=== PATIENT | male | born 1975 | race Two or more races ===

== ENCOUNTER 2022-02-01 12:15 | Outpatient (REF) | payer MEDICAID, SELFPAY ==
--- NOTE | ~2022-02-01 | XR_ITS ---
EXAMINATION: LUMBAR SPINE AND RIGHT SHOULDER. CLINICAL INFORMATION: Low back pain COMPARISON: None TECHNIQUE: 3 views lumbar spine and 4 views right shoulder. FINDINGS: Lumbar spine: There is normal lumbar lordosis the vertebral heights and alignment is normal. There is no visible acute fracture, dislocation or subluxation seen there is no lytic or sclerotic process. Right shoulder: There is no visible acute fracture or dislocation seen the glenohumeral joint space and AC joint space is normal. There is no soft tissue abnormality seen XR/XR lumbar spine 2-3V IMPRESSION: Unremarkable lumbar spine exam. Unremarkable right shoulder exam
--- NOTE | ~2022-02-01 | XR_ITS ---
EXAMINATION: LUMBAR SPINE AND RIGHT SHOULDER. CLINICAL INFORMATION: Low back pain COMPARISON: None TECHNIQUE: 3 views lumbar spine and 4 views right shoulder. FINDINGS: Lumbar spine: There is normal lumbar lordosis the vertebral heights and alignment is normal. There is no visible acute fracture, dislocation or subluxation seen there is no lytic or sclerotic process. Right shoulder: There is no visible acute fracture or dislocation seen the glenohumeral joint space and AC joint space is normal. There is no soft tissue abnormality seen XR/XR shoulder RT min 2V IMPRESSION: Unremarkable lumbar spine exam. Unremarkable right shoulder exam
== END 2022-02-01 12:16 | disposition home or self-care (01) ==
LOC: HO.XRAY 12:15
PROVIDERS: Absent Provider Family Medicine; PCP Family Medicine; Visit Provider Internal Medicine
DX: M25.511 Pain in right shoulder (principal); M54.50 Low back pain, unspecified
CPT/HCPCS: 72100; 73030

== ENCOUNTER 2022-12-26 12:21 | Emergency (ER) | payer MEDICAID, SELFPAY ==
--- NOTE | ~2022-12-26 | XR_ITS ---
EXAMINATION: XR CHEST CLINICAL INFORMATION: Chest pain COMPARISON: X-ray 09/20/2011 TECHNIQUE: 2 frontal view of the chest was obtained. FINDINGS: Heart size within normal limits. Prosthetic valve. Monitoring leads overlie the chest. Lungs are symmetric expanded. No focal consolidation, effusion, edema or pneumothorax. No acute osseous abnormality. XR/XR chest 1V IMPRESSION: No acute pulmonary process.
[2022-12-26 12:26] VITALS: BP 114/63; PULSE 59; RESP 16; TEMP 36.5; O2SAT 99; BMI 18.8
--- NOTE | 2022-12-26 12:27 | ED_ITS ---
HPI - General Adult General Chief complaint: Chest Pain Stated complaint: Abnormal EKG sent from [facility] Time Seen by Provider: 12/26/22 13:12 Source: patient and family Mode of arrival: ambulatory Limitations: language barrier (Welsh is his 1st language, he speaks some Mongolian, telecommunicator supervisor used) History of Present Illness HPI narrative: 47-year-old male sent to the emergency department from the urgent care clinic for evaluation of chest pain abnormal EKG. The patient states that yesterday at 22:00 he was watching television when he had a gradual onset of chest pressure. He points to his left chest when asked to localize the pain. States the pain was only there if he tried to take a deep breath in. He states the pain did not change with movement or if he pushed on his chest. He states that he fell asleep when he woke up this morning his pain and resolved. He states he has had similar pain over the last year. He states that pain started after he fell and injured his back and chest. He states that he had 2 episodes of dizziness today which came on when he changed position. He denied fever, chills, rhinorrhea, sore throat, cough. He states that he has no chest pain at this time. He d enied shortness of breath or dyspnea on exertion. He denied nausea, vomiting, diarrhea. He denies any pain or swelling in his lower extremities, he has not gone on any long trips recently. Patient has a history of tetralogy of Fallot. He states that he had open-heart surgery when he was 6-month-old, 7 years old and 37 years old. Related Data Allergies Allergy/AdvReac Type Severity Reaction Status Date / Time aspirin [ASPIRIN] Allergy Unknown UNKNOWN Unverified 04/22/20 18:14 Review of Systems Review of Systems: Yes all other systems are reviewed and are negative [facility] Past Medical History [facility] Narrative: Past medical history: Tetralogy of Fallot. Past surgical history: Patient has had 3 open-heart surgeries at 6 months, 7 years old and 37 years old for his tetralogy of Fallot. Social history: He smokes 1/4 pack of cigarettes per day. He denies alcohol use. He occasionally smokes marijuana Social History Social History Alcohol intake: never Smoked in Last 30 Days: Yes Substance Use Type: Marijuana Advance Directives: No Advance Directives Information Provided: Yes Physical Exam ED Vital Signs: Vital Signs - 24 hr 12/26/22 12:26 12/26/22 13:05 12/26/22 14:57 Temperature 97.7 F Pulse Rate 59 50 50 Respiratory Rate 16 16 14 Blood Pressure 114/63 113/57 L 122/73 Pulse Oximetry 99 99 99 Oxygen Delivery Method Room Air Room Air Room Air BMI result Body Mass Index 18.8 Const General: cooperative and no acute distress Orientation/consciousness: oriented to person and oriented to place Limitations: no limitations HENMT Head: Yes normal to inspection, Yes normocephalic and Yes atraumatic Ears: external ears normal General nose exam: Normal external nose present Face and sinus: Yes normal facial exam Mouth: Normal oral and palatal mucosa present Throat: Yes posterior oropharynx normal Eyes General: appearance normal, both eyes and all related structures Pupils: Equal, round and reactive pupils present Neck Neck: Yes normal visual inspection, Yes no lymphadenopathy, Yes trachea midline and Yes supple Chest Chest palpation & inspection: normal inspection of the chest and normal palpation of entire chest wall Resp Effort & Inspection: normal respiratory effort and able to speak in complete sentences Auscultation: clear to auscultation bilaterally Cardio Rate: regular rate Rhythm: regular rhythm Heart sounds: S1 normal heart sound present, S2 normal heart sound present and no murmurs GI Inspection: Yes normal to inspection Palpation (GI): Soft to palpation, nontender and no guarding Auscultation: normal bowel sounds General: Yes no CVA tenderness Back/Spine/Pelvis Back: no CVA tenderness Skin General skin exam: no rashes or lesions noted Neuro General: oriented to person and oriented to place Cranial nerves: Yes CN's II-XII intact bilaterally and Yes Equal, round and reactive pupils present Cognition (Neuro): normal cognition Motor exam (neuro): 5/5 motor strength present throughout Extrem General: Yes normal to inspection Psych Appearance: grossly normal Speech and movement: Normal speech and movement present Affect: normal affect Attitude: cooperative Course Course Course Narrative: RME: 47yo M w/PHMx TOF, presenting to the ED sent in from [facility] for 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 Admits to dizziness & chest tightness since last night. denies CP at present. Reports new physical job, and home stressors with passing of grandmother and father. denies taking AC. VSS, nontoxic appearing EKG, labs, CXR ordered Full HPI, ROS and PE to be performed by primary ED provider. Medical Decision Making Medical Decision Making [facility] Narrative: 47-year-old male who presents emergency department for evaluation of left-sided chest pain which began last night at 22:00 while he was watching television. The pain had a pleuritic component to it and was only present when he took a deep breath in and out, the pain did not change with movement. He has had no pain this morning but he had 2 episodes of dizziness which he describes as room spinning that came on when he changed position. Patient was seen at the urgent care clinic and referred to the emergency department since he had an abnormal EKG. Patient has a history of tetralogy of Fallot and has had 3 heart surgeries. His exam was unremarkable. I ordered a laboratory evaluation includes CBC, BMP, liver panel, lipase, magnesium, PT/INR, D-dimer. EKG and chest x-ray were also ordered 1516: My interpretation patient's laboratory evaluation as follows: Platelet count was low 150,000. CMP was normal. High sensitive troponin I was below detectable limits. D-dimer was below detectable limits. My interpretation patient's chest x-ray was no acute disease. Patient's pain is pleuritic and may be secondary to a viral infection or may be musculoskeletal. I did discuss this with the patient. He was advised to take Tylenol and ibuprofen for the pain. He was given printed and verbal instructions discharged home. Differential Diagnosis Differential Diagnoses: The differential diagnosis associated with the presentation includes Differential diagnosis includes was not limited to pleuritic chest pain, pneumonia, pulmonary embolism, acute coronary syndrome, NSTEMI, viral syndrome Admission/Observation Consideration of admission/observation: Escalation of care including admission/observation considered Lab Data [facility] Lab Attestation statement: I reviewed the patient's lab results. See MDM 12/26/22 12:41 12/26/22 12:41 Labs: Lab Results 12/26/22 12/26/22 12/26/22 Range/Units 12:41 12:41 12:41 WBC 8.0 (4.8-10.8) X10*3/uL RBC 5.34 (4.60-5.80) X10*6/uL Hgb 16.5 (14.0-18.0) g/dl Hct 48.3 (42.0-52.0) % MCV 90.4 (80.0-98.0) fL MCH 30.9 (27.0-33.0) pg MCHC 34.2 (31.0-36.0) g/dl RDW 11.4 (11.0-16.0) % Plt Count 150 L (160-400) X10*3/uL MPV 13.5 H (9.4-12.4) fL Immature Gran % (Auto) 0.3 (0.0-0.4) % Neut % (Auto) 66.9 (45-73) % Lymph % (Auto) 26.1 (20-40) % [place] % (Auto) 5.2 (2-11) % Eos % (Auto) 0.9 (0-4) % Baso % (Auto) 0.6 (0-2) % Lymph # (Auto) 2.0 (1.2-4.9) X10*3/uL [place] # (Auto) 0.4 (0.1-1.2) X10*3/uL Eos # (Auto) 0.1 (0.0-0.4) X10*3/uL Baso # (Auto) 0.1 (0.0-0.2) X10*3/uL Abs Immat Gran (auto) 0.02 (0.00-0.03) X10*3/uL Absolute Neuts (auto) 5.2 (2.0-8.3) x10*3/uL Absolute Nucleated RBC 0.000 (0.0-0.012) X10*3/uL Nucleated RBC % (auto) 0.0 (0.0-0.2) /100WBC PT 11.0 (10.0-13.1) SEC INR 1.0 (0.9-1.1) D-Dimer High Sensitivty < 150 NG/ML Sodium 141 (135-145) mmol/L Potassium 4.4 (3.3-5.1) mmol/L Chloride 105 (96-108) mmol/L Carbon Dioxide 28 (22-29) mmol/L Anion Gap 12 (12-20) BUN 12 (9-16) mg/dL Creatinine 0.96 (0.5-1.4) mg/dL Estim Creat Clear Calc 74.8 Estimated GFR > 60 Random Glucose 100 (60-115) mg/dL Calcium 10.0 (8.4-10.2) mg/dL Magnesium 2.2 (1.6-2.6) mg/dL Total Bilirubin 0.6 (0.0-1.0) mg/dL Direct Bilirubin 0.1 (0.0-0.5) mg/dL AST 16 (5-37) U/L ALT 10 (0-40) U/L Alkaline Phosphatase 103 (39-117) U/L Troponin I High Sens (<3.5-35.0) ng/L Total Protein 7.3 (6.5-8.0) g/dL Albumin 4.9 (3.5-5.0) g/dL Lipase 14 (8-78) U/L Urine Color Urine Appearance Urine pH (5.0-9.0) Ur Specific [place] (1.005-1.025) Urine Protein (Neg-Trace) mg/dL Urine Glucose (UA) (Negative) mg/dL Urine Ketones (Negative) mg/dL Urine Blood (Negative) Urine Nitrite (Negative) Ur Leukocyte Esterase (Negative) Urine RBC (0-2) /HPF Urine WBC (0-5) /HPF Ur Squamous Epith Cells (0-2) /HPF Urine Bacteria (None Seen) Hyaline Casts (0-2) /LPF 12/26/22 12/26/22 Range/Units 12:41 14:58 WBC (4.8-10.8) X10*3/uL RBC (4.60-5.80) X10*6/uL Hgb (14.0-18.0) g/dl Hct (42.0-52.0) % MCV (80.0-98.0) fL MCH (27.0-33.0) pg MCHC (31.0-36.0) g/dl RDW (11.0-16.0) % Plt Count (160-400) X10*3/uL MPV (9.4-12.4) fL Immature Gran % (Auto) (0.0-0.4) % Neut % (Auto) (45-73) % Lymph % (Auto) (20-40) % [place] % (Auto) (2-11) % Eos % (Auto) (0-4) % Baso % (Auto) (0-2) % Lymph # (Auto) (1.2-4.9) X10*3/uL [place] # (Auto) (0.1-1.2) X10*3/uL Eos # (Auto) (0.0-0.4) X10*3/uL Baso # (Auto) (0.0-0.2) X10*3/uL Abs Immat Gran (auto) (0.00-0.03) X10*3/uL Absolute Neuts (auto) (2.0-8.3) x10*3/uL Absolute Nucleated RBC (0.0-0.012) X10*3/uL Nucleated RBC % (auto) (0.0-0.2) /100WBC PT (10.0-13.1) SEC INR (0.9-1.1) D-Dimer High Sensitivty NG/ML Sodium (135-145) mmol/L Potassium (3.3-5.1) mmol/L Chloride (96-108) mmol/L Carbon Dioxide (22-29) mmol/L Anion Gap (12-20) BUN (9-16) mg/dL Creatinine (0.5-1.4) mg/dL Estim Creat Clear Calc Estimated GFR Random Glucose (60-115) mg/dL Calcium (8.4-10.2) mg/dL Magnesium (1.6-2.6) mg/dL Total Bilirubin (0.0-1.0) mg/dL Direct Bilirubin (0.0-0.5) mg/dL AST (5-37) U/L ALT (0-40) U/L Alkaline Phosphatase (39-117) U/L Troponin I High Sens < 2.7 (<3.5-35.0) ng/L Total Protein (6.5-8.0) g/dL Albumin (3.5-5.0) g/dL Lipase (8-78) U/L Urine Color Yellow Urine Appearance Clear Urine pH 8.0 (5.0-9.0) Ur Specific [place] 1.010 (1.005-1.025) Urine Protein Negative (Neg-Trace) mg/dL Urine Glucose (UA) Negative (Negative) mg/dL Urine Ketones Negative (Negative) mg/dL Urine Blood Negative (Negative) Urine Nitrite Negative (Negative) Ur Leukocyte Esterase Negative (Negative) Urine RBC 0-2 (0-2) /HPF Urine WBC 0-5 (0-5) /HPF Ur Squamous Epith Cells 0-2 (0-2) /HPF Urine Bacteria None Seen (None Seen) Hyaline Casts 0-2 (0-2) /LPF Independent Interpretation I performed an independent interpretation of an: EKG Interpretation: My independent interpretation patient's 12 EKG is as follows: Sinus tachycardia with a rate of 107, normal DC interval, wide QRS duration, inverted T-waves V1 and V2. Radiology Impression Discussion of test interpretation with radiology: I have reviewed the rad iologist's reading. Radiologist Impression: R chest 1V IMPRESSION: No acute pulmonary process. Dictated By:Levi Garcia MD Independent Historian Clinical information obtained from an independent historian. History obtained from or confirmed by: Spouse Discharge Plan Discharge Clinical Impression: Chest pain Patient Disposition: Home, Self-Care Additional Instructions: Your blood work was normal which is reassuring. Your 12 EKG was unchanged from your previous EKG done on 12/06/2012 Your EKG is abnormal since you had tetralogy of Fallot at and since she has for heart surgeries. Your pain is most likely caused by either a viral infection (pleurisy) or inflammation of the muscles of your chest. Take ibuprofen 200 mg pills, 2 pills every 6 hours as needed for pain. Take Tylenol (acetaminophen) 500 mg pills, 2 pills every 6 hours as needed for pain. Follow-up with your doctor in 2 days. Please return to the emergency department if your symptoms get worse or if you develop any symptoms that are concerning to you. Please see the work note Stand Alone Forms: Work/School Release
--- NOTE | 2022-12-26 12:31 | ECG_ITS ---
Test Reason : CHEST PAIN Blood Pressure : / mmHG Vent. Rate : 107 BPM Atrial Rate : 300 BPM P-R Int : 000 ms QRS Dur : 010 ms QT Int : 180 ms P-R-T Axes : 000 000 249 degrees QTc Int : 240 ms Normal sinus rhythm Indeterminate axis Right bundle branch block Abnormal ECG When compared with ECG of 06-DEC-2012 14:53, No significant changes seen Referred By: Shauna Taylor Electronically Signed By:JACQUELYN GEORGES
[2022-12-26 12:56] LABS: Basophils Absolute Auto 0.1 X10*3/uL (0.0-0.2); Basophils Percent Auto 0.6 % (0-2); Eosinophils Absolute Auto 0.1 X10*3/uL (0.0-0.4); Eosinophils Percent Auto 0.9 % (0-4); Hematocrit 48.3 % (42.0-52.0); Hemoglobin 16.5 g/dl (14.0-18.0); Imm Gran Abs Auto 0.02 X10*3/uL (0.00-0.03); Imm Gran Pct Auto 0.3 % (0.0-0.4); Lymphocytes Percent Auto 26.1 % (20-40); Mean Corpuscular HGB Conc 34.2 g/dl (31.0-36.0); Mean Corpuscular Hemoglobin 30.9 pg (27.0-33.0); Mean Corpuscular Volume 90.4 fL (80.0-98.0); Mean Platelet Volume 13.5 fL (9.4-12.4); Monocytes Absolute Auto 0.4 X10*3/uL (0.1-1.2); Monocytes Percent Auto 5.2 % (2-11); Neutrophils Absolute Auto 5.2 x10*3/uL (2.0-8.3); Neutrophils Percent Auto 66.9 % (45-73); Platelet Count 150 X10*3/uL (160-400); Red Blood Count 5.34 X10*6/uL (4.60-5.80); Red Cell Distribution Width 11.4 % (11.0-16.0); WBC ABN SCTR 1
[2022-12-26 12:57] LABS: WBC ABN SCTR FOR CBC 1
[2022-12-26 12:58] LABS: MANUAL DIFF FLAG NO
[2022-12-26 13:05] VITALS: BP 113/57; PULSE 50; RESP 16; O2SAT 99
[2022-12-26 13:06] LABS: Alanine Aminotransferase 10 U/L (0-40); Albumin Level 4.9 g/dL (3.5-5.0); Alkaline Phosphatase 103 U/L (39-117); Anion Gap 12 (12-20); Aspartate Amino Transferase 16 U/L (5-37); Bilirubin Direct 0.1 mg/dL (0.0-0.5); Bilirubin Total 0.6 mg/dL (0.0-1.0); Blood Urea Nitrogen 12 mg/dL (9-16); Carbon Dioxide 28 mmol/L (22-29); Chloride 105 mmol/L (96-108); Creatinine Clr Calc Pharmacy 74.8; Estimated Glomerular Filt Rate > 60; Glucose Random 100 mg/dL (60-115); Lipase 14 U/L (8-78); Magnesium 2.2 mg/dL (1.6-2.6); Potassium 4.4 mmol/L (3.3-5.1); Sodium 141 mmol/L (135-145); Total Protein 7.3 g/dL (6.5-8.0)
[2022-12-26 13:13] LABS: Troponin-I High Sensitivity < 2.7 ng/L (<3.5-35.0)
[2022-12-26 14:20] LABS: D Dimer High Sensitivity < 150 NG/ML
[2022-12-26 14:57] VITALS: BP 122/73; PULSE 50; RESP 14; O2SAT 99
[2022-12-26 15:07] LABS: Appearance Urine Clear; Color Urine Yellow; Glucose Urine UA Negative (Negative); Leukocyte Esterase Urine Negative (Negative); Nitrite Urine Negative (Negative); Urine Blood Negative (Negative); Urine Ketones Negative (Negative); Urine Protein Negative (Neg-Trace)
[2022-12-26 15:12] LABS: Bacteria Urine None Seen (None Seen); Hyaline Casts Urine 0-2 /LPF (0-2); RBC Urine 0-2 /HPF (0-2); Squamous Epithelial Cell Urine 0-2 /HPF (0-2); WBC Urine 0-5 /HPF (0-5)
== END 2022-12-26 16:03 | disposition home or self-care (01) ==
PROVIDERS: Physician Assistant; Emergency Provider Emergency Medicine Emergency Medical Services; PCP Family Medicine
DX: R07.9 Chest pain, unspecified (principal); R94.31 Abnormal electrocardiogram [ECG] [EKG]
CPT/HCPCS: 36415; 71045; 80048; 80076; 81001; 83690; 83735; 84484; 85025; 85379; 85610; 93005; 99283; 99285

== ENCOUNTER 2024-05-28 11:14 | Outpatient (REF) | payer OTHER, SELFPAY ==
[2024-05-28 13:44] LABS: Estimated Average Glucose 108 mg/dL; Hemoglobin A1C 142.3523 umol/L; Hemoglobin A1c % 5.4 % (<6.0); Total Hemoglobin (HGBA1C) 4047.3953 umol/L
[2024-05-28 13:47] LABS: Hematocrit 46.9 % (42.0-52.0); Hemoglobin 16.5 g/dl (14.0-18.0); Mean Corpuscular HGB Conc 35.2 g/dl (31.0-36.0); PLT CLUMP 1; Red Blood Count 5.33 X10*6/uL (4.60-5.80); Red Cell Distribution Width 11.5 % (11.0-16.0)
[2024-05-28 13:49] LABS: White Blood Count 9.1 X10*3/uL (4.8-10.8)
[2024-05-28 14:07] LABS: Platelet Count 149 X10*3/uL (160-400)
[2024-05-28 14:11] LABS: Alanine Aminotransferase 28 U/L (0-40); Albumin Level 4.7 g/dL (3.5-5.0); Alkaline Phosphatase 98 U/L (39-117); Anion Gap 13 (12-20); Aspartate Amino Transferase 31 U/L (5-37); Bilirubin Direct 0.2 mg/dL (0.0-0.5); Bilirubin Total 0.6 mg/dL (0.0-1.0); Blood Urea Nitrogen 14 mg/dL (9-16); Calcium 10.5 mg/dL (8.4-10.2); Carbon Dioxide 29 mmol/L (22-29); Chloride 103 mmol/L (96-108); Cholesterol 166 mg/dL (<200); Estimated Glomerular Filt Rate > 60; Glucose Random 98 mg/dL (60-115); HDL Cholesterol 50 mg/dL (>40); LDL Cholesterol Calculated 101 mg/dL (<100); Potassium 4.2 mmol/L (3.3-5.1); Sodium 141 mmol/L (135-145); Total Protein 7.2 g/dL (6.5-8.0); Triglycerides 79 mg/dL (<150)
[2024-05-28 14:14] LABS: Free T4 (Free Thyroxine) 0.91 ng/dL (0.71-1.85); Thyroid Stimulating Hormone 0.77 uIU/mL (0.32-4.0); Vitamin D 25-OH Total 50.9 ng/mL (>30)
[2024-05-28 15:19] LABS: CT PCR NOT DETECTED (Not Detect.); NG PCR NOT DETECTED (Not Detect.)
[2024-05-29 08:34] LABS: Hepatitis A Antibody IgG Nonreactive (Nonreactive); ~Hepatitis A Antibody IgG 0.15 S/CO (0.00-0.99)
[2024-05-29 08:35] LABS: HBS Num1 7.39 mIU/mL (0-7.99); HBc Num1 0.11 S/CO (0.00-0.79); HBsAGNum1 0.39 S/CO (0.00-0.99); HIV AB/AG Nonreactive (Nonreactive); HIV Num 1 0.07 S/CO (0.00-0.99); Hepatitis B Core Antibody Nonreactive (Nonreactive); Hepatitis B Surface Antigen Negative (Negative); ~HepC Num1 0.07 S/CO (0.00-0.79); ~Hepatitis B Surface Antibody NONREACTIVE (Nonreactive); ~Hepatitis C Antibody Nonreactive (Nonreactive)
[2024-06-05 12:23] LABS: RPR Rapid Plasma Reagin REACTIVE (NON-REACTIVE)
== END 2024-05-28 11:15 | disposition home or self-care (01) ==
LOC: HO.HHCL 11:14
PROVIDERS: Visit Provider Family Medicine
DX: Z00.00 Encounter for general adult medical examination without abnormal findings (principal); Q24.9 Congenital malformation of heart, unspecified; Z68.1 Body mass index [BMI] 19.9 or less, adult
CPT/HCPCS: 36415; 80048; 80061; 80076; 82306; 83036; 84439; 84443; 85027; 86592; 86593; 86704; 86706; 86708; 86803; 87340; 87389; 87491; 87591

== ENCOUNTER 2024-08-14 14:37 | Outpatient (REF) | payer MEDICAID, SELFPAY ==
[2024-08-14 16:37] LABS: Anion Gap 10 (12-20); Blood Urea Nitrogen 17 mg/dL (9-16); Calcium 9.1 mg/dL (8.4-10.2); Carbon Dioxide 28 mmol/L (22-29); Chloride 107 mmol/L (96-108); Estimated Glomerular Filt Rate > 60; Glucose Random 96 mg/dL (60-115); Sodium 141 mmol/L (135-145)
--- OUTSIDE RECORDS SUMMARY | 2024-08-14 16:42 | XMS_ITS | Continuity of Care Document ---
Author Organization [facility] Address [address] [place] [address] Phone Care Team Providers Care Layout Artist Name Role Phone Girish ROCKWELL, Valentino ALLEN Unavailable Unavail able Procedures Procedure Date Initial Hospital Care Limited 8 Advance Directives Directive Yes / No Effective Date File Name No Information Encounters Encounter Description Practice Location Reason(s) For Visit Diagnoses Date Provider Providers Copied on Encounter [facility], [address] [place] [address], [address] [place] [address], tel:[phone] [facility] No Information 8 Girish Avelar . [address] [facility] , [address], [id number] , [place]. tel:[phone] Initial Hospital Care Limited [facility], [address] [place] [address], [address] [place] [address], tel:[phone] Girish HoarsenessOther voice and resonance disorders 8 Girish Avelar . [address] [facility] , [address], [id number] , . tel:[phone] Family History Family Member Type Diagnosis Age At Onset No Information Payers Payer name Insurance type Covered libertarian ID Authoriza tion(s) No Information Social History Type Description Quantity Date Captured Comments Alcohol Use Details Unknown Caffeine Use Details Unknown Tobacco Use Status No Information Smoking Status No Information Sex Male Chief Complaint And Reason For Visit No Information Reason For Referral Reason For Referral No Information History Of Present Illness Encounter Date Complaint History Of Prese nt Illness No Information Functional Status Date Functional Assessmen t No Information Instructions Date Instruction Additional Infor mation No Information Assessments Type Assessment Date No Information Patient Care Teams Name Effective Dates (start - stop) Status Members No Information
[2024-08-14 17:31] LABS: Parathyroid Hormone Intact 90.6 pg/mL (8.7-77.1)
[2024-08-15 07:59] LABS: Syphilis Screen Nonreactive (Nonreactive)
[2024-08-17 07:59] LABS: RPR Rapid Plasma Reagin NON-REACTIVE (NON-REACTIVE)
[2024-08-18 13:43] LABS: Calcium, Ionized 5.1 mg/dL (4.7-5.5)
== END 2024-08-14 14:38 | disposition home or self-care (01) ==
LOC: HO.HHCL 14:37
PROVIDERS: Visit Provider Family Medicine
DX: Z00.00 Encounter for general adult medical examination without abnormal findings (principal); E83.52 Hypercalcemia
CPT/HCPCS: 36415; 80048; 82330; 83970; 86592; 86780